=== PATIENT | female | born 1970 | race African-American/Black ===

== ENCOUNTER 2022-02-08 10:33 | Inpatient (IN) ==
[2022-02-01 15:44] LABS: Basophils # 0.1 10*3/uL (0.0-0.2); Basophils % 0.8 % (0.0-0.8); Eosinophils # 0.5 10*3/uL (0.0-0.87); Eosinophils % 7.5 % (0.00-10.9); Hematocrit 42.8 VOL% (35.7-47.0); Hemoglobin 14.2 GM/DL (12.0-16.0); Immature Granulocytes % 0.3 %; Immature Granulocytes Absolute 0.02 #; Lymphocytes % 32.8 % (21.3-54.2); Mean Corpuscular HGB Conc 33.2 GM/DL (32-36); Mean Corpuscular Volume 91.6 FL (87-102); Mean Platelet Volume 9.7 FL (9.6-12.0); Monocytes # 0.8 10*3/uL (0.11-0.8); Monocytes % 12.8 % (1.7-12.7); Neutrophils % 45.8 % (38.7-73.9); Platelet Count 302 T/CUMM (130-400); Red Blood Count 4.67 MC/CUMM (3.8-5.5); Red Cell Distribution Width 13.2 % (9.3-17.3)
[2022-02-01 15:47] LABS: Mucus,Urine Occasional /LPF (Occasional); RBC,Urine 464 /HPF (0-4)
[2022-02-01 15:48] LABS: Bilirubin,Urine Negative (Negative); Blood, Urine Large mg/dL (Negative); Glucose,Urine (UA) Negative (Negative); Ketones,Urine Negative (Negative); Nitrite,Urine Negative (Negative); Protein,Urine Negative (Negative); Urine Appearance Cloudy (Clear); Urine Color Yellow (Yellow); Urine Specific Gravity 1.032 (1.001-1.035); Urine Urobilinogen 0.2 eU/dL (<2.0)
[2022-02-01 16:05] LABS: Alanine Aminotransferase 26 U/L (13-56); Albumin 3.6 G/DL (3.4-5.0); Alkaline Phosphatase 101 U/L (45-117); Aspartate Amino Transferase 16 U/L (0-37); Bilirubin,Total < 0.39 MG/DL (0.20-1.00); Blood Urea Nitrogen 13 MG/DL (7-18); Calcium 9.2 MG/DL (8.5-10.1); Carbon Dioxide 27 MMOL/L (21-32); Chloride 107 MMOL/L (98-107); Cholesterol 187 MG/DL (50-200); Glucose 85 MG/DL (74-106); HDL Cholesterol 60 MG/DL (40-60); Osmolality,Calculated 275.5 MOS/KG (273-304); Potassium 4.6 MMOL/L (3.5-5.1); Risk Ratio 3.12; Sodium 139 MMOL/L (136-145); Total Protein 6.9 G/DL (6.4-8.2); Triglycerides 117 MG/DL (2-150); VLDL Cholesterol 23.4 MG/DL
[2022-02-01 16:33] LABS: HIV Antigen/Antibody Result Nonreactive (Nonreactive)
[~2022-02-08 10:33] MED LIST: AMPICILLIN/SULBACTAM 3,000 MG in SODIUM CHLORIDE 0.9% 100 ML IV ONE
[2022-02-08] MEDS ORDERED: LACTATED RINGERS 1,000 ML IV SCH ×2 (11:30→16:30)
[2022-02-08] MEDS ORDERED: DIAZEPAM 5 MG TABLET PO ONE (12:22)
[2022-02-08] MEDS ORDERED: ACETAMINOPHEN 500 MG TABLET PO ONE (12:22)
[2022-02-08] MEDS ORDERED: FAMOTIDINE 20 MG TABLET PO ONE (12:22)
[2022-02-08] MEDS ORDERED: GABAPENTIN 400 MG CAPSULE PO ONE (12:22)
[2022-02-08] MEDS ORDERED: AMPICILLIN/SULBACTAM 3,000 MG VIAL ONE (12:42)
[2022-02-08] MEDS ORDERED: fentaNYL 100 MCG/2 ML VIAL ONE ×2 (13:13→14:03)
[2022-02-08] MEDS ORDERED: DEXMEDETOMIDINE 200 MCG/2 ML VIAL ONE (13:15)
[2022-02-08] MEDS ORDERED: LIDOCAINE 1% 5 ML VIAL ONE (13:20)
[2022-02-08] MEDS ORDERED: DEXAMETHASONE 4 MG/1 ML VIAL ONE (13:20)
[2022-02-08] MEDS ORDERED: MIDAZOLAM 2 MG/2 ML VIAL ONE (13:20)
[2022-02-08] MEDS ORDERED: ROPIVACAINE 0.5% 30 ML VIAL ONE (13:20)
[2022-02-08] MEDS ORDERED: ONDANSETRON 4 MG/2 ML VIAL ONE (14:15)
[2022-02-08] MEDS ORDERED: SEVOFLURANE 1 UNIT/15 MINUTE INH ONE (14:15)
[2022-02-08] MEDS ORDERED: ROCURONIUM 50 MG/5 ML VIAL IV ONE (14:15)
[2022-02-08] MEDS ORDERED: LIDOCAINE 2% 5 ML VIAL ONE (14:15)
[2022-02-08] MEDS ORDERED: SUCCINYLCHOLINE 200 MG/10 ML VIAL ONE (14:15)
[2022-02-08] MEDS ORDERED: LACTATED RINGERS 1,000 ML IV ONE (14:15)
[2022-02-08] MEDS ORDERED: propofoL 200 MG/20 ML VIAL IV ONE (14:15)
[2022-02-08] MEDS ORDERED: PHENYLEPHRINE 1 MG/10 ML SYRINGE IV ONE ×2 (14:26→14:27)
[2022-02-08] MEDS ORDERED: MICROFIBRILLAR COLLAGEN POWDER 1 GM CAN TOP ONE (15:12)
[2022-02-08] MEDS ORDERED: SUGAMMADEX 200 MG/2 ML VIAL IV ONE (15:21)
[2022-02-08 16:04] LABS: RBC,Urine 1 /HPF (0-4)
[2022-02-08 16:05] LABS: Bilirubin,Urine Negative (Negative); Blood, Urine Negative (Negative); Glucose,Urine (UA) Negative (Negative); Ketones,Urine Negative (Negative); Nitrite,Urine Negative (Negative); Protein,Urine Negative (Negative); Urine Appearance Clear (Clear); Urine Color Yellow (Yellow); Urine Specific Gravity 1.015 (1.001-1.035); Urine Urobilinogen 0.2 eU/dL (<2.0)
[2022-02-08] MEDS ORDERED: ACETAMINOPHEN 325 MG TABLET PO PRN (16:10)
[2022-02-08] MEDS ORDERED: BENZOCAINE/MENTHOL LOZENGE 18/BOX PO PRN (16:10)
[2022-02-08] MEDS ORDERED: BISACODYL 10 MG SUPP RECTAL PRN (16:10)
[2022-02-08] MEDS ORDERED: ONDANSETRON 4 MG/2 ML VIAL IV PRN (16:10)
[2022-02-08] MEDS ORDERED: DOCUSATE SODIUM 100 MG CAPSULE PO PRN (16:10)
[2022-02-08] MEDS ORDERED: MAGNESIUM HYDROXIDE SUSP 30 ML UDCUP PO PRN (16:10)
[2022-02-08] MEDS ORDERED: HYDROmorphone 1 MG/1 ML SYRINGE IV PRN (16:45)
[2022-02-08 23:20] LABS: Basophils % 0.1 % (0.0-0.8); Hematocrit 39.7 VOL% (35.7-47.0); Hemoglobin 13.3 GM/DL (12.0-16.0); Immature Granulocytes % 0.6 %; Lymphocytes # 0.6 10*3/uL (1.4-4.0); Lymphocytes % 3.7 % (21.3-54.2); Mean Corpuscular HGB Conc 33.5 GM/DL (32-36); Mean Corpuscular Volume 90.2 FL (87-102); Mean Platelet Volume 8.5 FL (9.6-12.0); Monocytes # 0.5 10*3/uL (0.11-0.8); Monocytes % 3.2 % (1.7-12.7); Neutrophils % 92.4 % (38.7-73.9); Platelet Count 323 T/CUMM (130-400); Red Cell Distribution Width 12.9 % (9.3-17.3); White Blood Count 16.3 T/CUMM (4-12)
[2022-02-08 23:47] LABS: Lymphocytes 3 % (20-55); Platelet Estimate Normal; Total Cells Counted 100
[2022-02-09] MEDS: IBUPROFEN 800 MG TABLET PO PRN ×2 (02:15→17:40)
[2022-02-09 04:56] LABS: Basophils % 0.1 % (0.0-0.8); Hematocrit 37.3 VOL% (35.7-47.0); Hemoglobin 12.3 GM/DL (12.0-16.0); Immature Granulocytes % 0.5 %; Immature Granulocytes Absolute 0.07 #; Lymphocytes # 0.9 10*3/uL (1.4-4.0); Mean Corpuscular Volume 90.1 FL (87-102); Mean Platelet Volume 8.8 FL (9.6-12.0); Monocytes % 6.8 % (1.7-12.7); Neutrophils % 86.6 % (38.7-73.9); Platelet Count 336 T/CUMM (130-400); Red Blood Count 4.14 MC/CUMM (3.8-5.5); Red Cell Distribution Width 12.9 % (9.3-17.3)
[2022-02-09] MEDS ORDERED: MAGNESIUM CITRATE 300 ML BOTTLE PO PRN (11:45)
[2022-02-09] MEDS: NEOMYCIN/POLYMYXIN/BACITRACIN OINT 0.9 GM PACK TOP SCH ×2 (12:36→21:00)
[2022-02-09] MEDS: DOCUSATE SODIUM 100 MG CAPSULE PO SCH (20:35)
[2022-02-09] MEDS: MAGNESIUM HYDROXIDE SUSP 30 ML UDCUP PO SCH (20:35)
[2022-02-10 07:24] VITALS: BP 134/62
[2022-02-10] MEDS ORDERED: ACETAMINOPHEN 500 MG TABLET PO PRN (08:32)
[2022-02-10] MEDS: DOCUSATE SODIUM 100 MG CAPSULE PO SCH (09:00)
[2022-02-10] MEDS: MAGNESIUM HYDROXIDE SUSP 30 ML UDCUP PO SCH (09:00)
[2022-02-10] MEDS: IBUPROFEN 800 MG TABLET PO PRN (09:01)
[2022-02-10] MEDS: NEOMYCIN/POLYMYXIN/BACITRACIN OINT 0.9 GM PACK TOP SCH (10:00)
== END 2022-02-10 11:08 | disposition home or self-care (01) | DRG 743 ==
LOC: N.OR 10:33 → N.SDSINP 10:37 → N.OB 16:09
PROVIDERS: ADMIT Obstetrics & Gynecology; ATTEND Obstetrics & Gynecology